=== PATIENT | female | born 1960 | race African-American/Black ===

== ENCOUNTER 2018-08-16 19:14 | Emergency (ER) | payer OTHER ==
[~2018-08-16] VITALS: Ht 154.9 cm; Wt 104.3 kg
[2018-08-16] MEDS ORDERED: methylPREDNISolone SOD SUCC 125 MG/2 ML VL IV ONE (20:00)
[2018-08-16 21:04] LABS: Basophils # (auto) 0.1 uL; Basophils % (auto) 0.7 % (0.0-2.0); Eosinophils # (auto) 0.1 uL; Eosinophils % (auto) 1.2 % (0.0-7.0); Hematocrit 42.6 % (36.0-46.0); Hemoglobin 14.2 g/dL (12.2-16.2); Lymphocytes # (auto) 2.4 uL; Lymphocytes % (auto) 21.5 % (10.0-50.0); Mean Corpuscular Hemoglobin 31.5 pg (28.0-32.0); Mean Corpuscular Hgb Conc. 33.3 g/dL (32.0-36.0); Mean Corpuscular Volume 94.7 fL (80.0-100.0); Monocytes # (auto) 0.5 uL; Monocytes % (auto) 4.6 % (0.0-12.0); Neutrophils # (auto) 8.2 uL; Nucleated Red Blood Cells % 0.1 %; Platelet Count (auto) 355 10^3/uL (140-450); Red Cell Distribution Width 14.3 % (11.8-14.3); White Blood Cell 11.4 10^3/uL (4.4-10.8)
[2018-08-16 21:17] LABS: Alanine Aminotransferase 22 U/L (13-56); Albumin 3.7 g/dL (3.4-5.0); Anion Gap 12 (5-15); Aspartate Aminotransferase 22 U/L (15-37); BUN/Creatinine Ratio 18.2; Blood Urea Nitrogen 18 mg/dL (7-18); Calcium 9.7 mg/dL (8.5-10.1); Carbon Dioxide 25 mmol/L (21-32); Chloride 103 mmol/L (98-107); GFR African American 74 mL/min; GFR Non-African American 61 mL/min; Glucose 79 mg/dL (74-106); Potassium 3.7 mmol/L (3.5-5.1); Sodium 140 mmol/L (136-145)
[2018-08-16 21:22] LABS: Alkaline Phosphatase 74 U/L (45-117); Bilirubin, Total 0.3 mg/dL (0.2-1.0); Total Protein 8.7 g/dL (6.4-8.2)
[2018-08-16 21:52] VITALS: BP 123/81
== END 2018-08-17 04:08 | disposition home or self-care (01) ==
LOC: ER 19:14
DX: T78.40XA Allergy, unspecified, initial encounter (principal); T78.3XXA Angioneurotic edema, initial encounter; X58.XXXA Exposure to other specified factors, initial encounter
CPT/HCPCS: 36415; 71045; 80053; 83735; 84484; 85025; 93005; 96374; 99285; J2930

== ENCOUNTER 2018-11-10 13:54 | Emergency (ER) | payer OTHER ==
[~2018-11-10] VITALS: Ht 157.5 cm; Wt 99.8 kg
[2018-11-10 14:26] VITALS: BP 117/76
== END 2018-11-10 17:45 | disposition left against medical advice (07) ==
LOC: ER 14:02
DX: T78.40XA Allergy, unspecified, initial encounter (principal); Z53.21 Procedure and treatment not carried out due to patient leaving prior to being seen by health care provider; X58.XXXA Exposure to other specified factors, initial encounter

== ENCOUNTER 2020-05-04 12:50 | Emergency (ER) | payer OTHER ==
[~2020-05-04] VITALS: Ht 157.5 cm; Wt 102.1 kg
[2020-05-04 14:00] VITALS: BP 115/68
== END 2020-05-04 14:15 | disposition home or self-care (01) ==
LOC: ER 12:50
DX: T78.1XXA Other adverse food reactions, not elsewhere classified, initial encounter (principal); Z88.0 Allergy status to penicillin; Z88.8 Allergy status to other drugs, medicaments and biological substances

== ENCOUNTER 2022-01-06 15:05 | Emergency (ER) | payer OTHER ==
[~2022-01-06] VITALS: Ht 157.5 cm; Wt 98.9 kg
[2022-01-06] MEDS ORDERED: METH4PAK PO (16:05)
[2022-01-06] MEDS ORDERED: methylPREDNISolone SOD SUCC 125 MG/2 ML VL IM ONE (16:15)
[2022-01-06 16:55] VITALS: BP 119/79
== END 2022-01-06 17:09 | disposition home or self-care (01) ==
LOC: ER 15:05
DX: T78.40XA Allergy, unspecified, initial encounter (principal); E11.9 Type 2 diabetes mellitus without complications; I10 Essential (primary) hypertension; Z88.0 Allergy status to penicillin; Z88.1 Allergy status to other antibiotic agents; X58.XXXA Exposure to other specified factors, initial encounter
CPT/HCPCS: 71045; 96372; 99283; J2930

== ENCOUNTER 2023-11-22 05:13 | Emergency (ER) | payer OTHER ==
[~2023-11-22] VITALS: Ht 154.9 cm; Wt 107.0 kg
[~2023-11-22 05:13] MED LIST: METH4PAK PO
[2023-11-22] MEDS: ALBUTEROL SULF 2.5 MG/0.5ML(0.5%) NEB SOLN NEB ONE (06:46)
[2023-11-22] MEDS: IPRATROPIUM BROM 0.5 MG/2.5ML INH SOL NEB ONE (06:46)
[2023-11-22 07:19] VITALS: BP 154/79; PULSE 84; RESP 20; TEMP 98.1; O2SAT 96
[2023-11-22] MEDS ORDERED: ALBU108A5 IN (07:21)
== END 2023-11-22 07:25 | disposition home or self-care (01) ==
LOC: ER 05:13
DX: J45.901 Unspecified asthma with (acute) exacerbation (principal); I10 Essential (primary) hypertension; E11.9 Type 2 diabetes mellitus without complications
CPT/HCPCS: 94640; 99283; J7644

== ENCOUNTER 2024-06-29 04:28 | Emergency (ER) | payer OTHER ==
[~2024-06-29] VITALS: Ht 154.9 cm; Wt 111.2 kg
[~2024-06-29 04:28] MED LIST changes: +ALBU108A5 IN
[2024-06-29 04:32] VITALS: BP 138/91; RESP 17; TEMP 99
[2024-06-29] MEDS ORDERED: PRED20TA2 PO (06:28)
[2024-06-29] MEDS: DexAMETHasone SOD PHOS 10MG/1ML VIAL INJ IM ONE (06:46)
[2024-06-29 06:53] VITALS: PULSE 80; O2SAT 95
[2024-06-29] MEDS ORDERED: DOXY100C79 PO (06:54)
== END 2024-06-29 06:54 | disposition home or self-care (01) ==
LOC: ER 04:28
DX: J45.901 Unspecified asthma with (acute) exacerbation (principal); J18.9 Pneumonia, unspecified organism; E11.9 Type 2 diabetes mellitus without complications; I10 Essential (primary) hypertension
CPT/HCPCS: 71046; 96372; 99283; J1100